=== PATIENT | female | born 1955 | race Caucasian/White ===

== ENCOUNTER 2016-12-09 06:04 | Outpatient (CLI) | payer MEDICARE, MEDICAID ==
[~2016-12-09] VITALS: Ht 165.1 cm; Wt 105.3 kg
--- NOTE | ~2016-12-09 | CATH ---
Cardiac Diagnostic Report Demographics Patient Name LINDA Santos Gender Female Date of 1955 Age 60 year(s) Patient Number [id number] Date of Study 12/09/2016 Visit Number [id number] Room Number G6399 [place] [id number] Ht 165 cm Wt 105.3 kg Referring Dada Dey Primary Physician Physician Roberto ATKINSON Performing Abdi Campa MD Secondary Physician Physician Diagnostic Abdi Campa MD Assisting Physician Physician Interventional Physician Manufactured Buildings Supervisor Physician Findings and Conclusions Diagnostic Findings and Conclusion 2 vessel CAD Diagnostic Recommendations Continued medical therapy Procedure Description The patient was brought to the diagnostic cardiac catheterization-EP laboratory in the fasting, non-sedated state. Informed consent was obtained in the written and verbal form after the risks and benefits were explained. The patient had no further questions and agreed to proceed. The planned puncture-incision site(s) were shaved and prepped with ChloraPrep and draped in the usual sterile manner. Conscious sedation, supplemental oxygen, and pain control medications were delivered by a registered nurse under physician guidance. Surface ECG rhythm, blood pressure measurement, and pulse oximetry were monitored throughout the procedure. Arterial access. The access site was infiltrated with lidocaine. The vessel was entered with the Seldinger technique. A sheath was advanced into the vessel and used for catheter placement. Selective left coronary angiography. A catheter was advanced into the left coronary vessel ostium under Fluoroscopic guidance. Contrast was injected by hand. Images were obtained in multiple projections. Selective right coronary angiography. A catheter was advanced into the right coronary vessel ostium under fluoroscopic guidance. Contrast was injected by hand. Images were obtained in multiple projections. Left heart catheterization. A catheter was advanced across the aortic valve to the left ventricle under fluoroscopic guidance. Resting hemodynamics were obtained. Arterial artery hemostasis was achieved. The patient was transferred to a regular nursing floor via cart accompanied by a nurse. The patient left the laboratory in stable condition. Diagnostic Cath Status: Elective Procedure Procedure Type Diagnostic procedure:Angiography:, Coronary Angios w/[facility] Indications: Dyspnea with exertion. The procedure was explained in detail to the patient. Risks, complications and alternative treatments were reviewed. Written consent was obtained. Medications Reviewed with Patient prior to Procedure. Angiographic Findings Dominance: Right Cardiac Arteries and Lesion Findings LMCA: Normal (0% Stenosis).medium wnl LAD: Normal (0% Stenosis).large prox, mediun wnl diags, medium wnl LCx: Normal (0% Stenosis).medium patent stent wnl OM medium wnlThere is a previous stent on Prox CX Proximal subsection showing wide patency. RCA: Normal (0% Stenosis).large patent stents PDA medium PL medium wnlThere is a previous stent on Prox RCA showing wide patency. There is a previous stent on Prox RCA Proximal subsection. There is a previous stent on Mid RCA. Coronary Tree Procedure Data Procedure Date Date: 12/09/2016Start: 08:07 AMEnd: 09:09 AM Entry Locations - Retrograde Percutaneous access was performed through the Left Femoral artery (Primary location). A 6 Fr sheath was inserted. Hemostasis was successfully obtained using Angio-Seal STS PLUS ([facility]). Entry Comments: rt side could not cannulate properly. Closure Comments: deployed by martine. Procedure Medications Order and Administration + + +---------+ + !Time !Medication !Dosage !Route ! + + +---------+ + !12/09/2016 08:02 !Versed !1 mg !I.V. ! !AM ! ! ! ! + + +---------+ + !12/09/2016 08:03 !Fentanyl !50 mcg !I.V. ! !AM ! ! ! ! + + +---------+ + !12/09/2016 08:05 !Versed !1 mg !I.V. ! !AM ! ! ! ! + + +---------+ + !12/09/2016 08:07 !Versed !1 mg !I.V. ! !AM ! ! ! ! + + +---------+ + !12/09/2016 08:10 !Fentanyl !50 mcg !I.V. ! !AM ! ! ! ! + + +---------+ + !12/09/2016 08:13 !Oxygen !2 l/min !NC ! !AM ! ! ! ! + + +---------+ + !12/09/2016 08:17 !Versed !1 mg !I.V. ! !AM ! ! ! ! + + +---------+ + !12/09/2016 08:20 !Oxygen !5 l/min !NC ! !AM ! ! ! ! + + +---------+ + !12/09/2016 08:31 !Versed !0.5 mg !I.V. ! !AM ! ! ! ! + + +---------+ + !12/09/2016 08:34 !D5W 1000ml w/ 150 mEq Sodium !106 ml/hr!I.V. drip ! !AM !Bicarb ! ! ! + + +---------+ + Devices Used - A6 Fr. BS JL 4 Diag. Catheterwas used for:Left coronary angiography. - A6 Fr. BS JR 4 Diag. Catheterwas used for:Right coronary angiography. - A6 Fr. BS Angled Pigtail Diag. Catheterwas used for:LV Pressures. Contrast Material - Isovue 82078 ml Fluoroscopy Time: Diagnostic: 6:24 minutes. Total: 6:24 minutes. Fluoroscopy Dose: Diagnostic: 739 mGy. Total: 739 mGy. Estimated Blood Loss: 10 ml. Medical History Allergies - Other:(Morphine, Demerol, Sulfa, Cozaar, Codeine, Statins, Plastic tape, Levothyroxine, oral prednisone.). - Other:(Sulfa, morphine, codeine, sulfamethoxazole, adenosine, meperidine, valsartan, erythromycin, diphenhydramine, atorvastatin). - Sulfa. - Morphine. - Codiene. - Other:(sulfa, morphine, codiene, erythromycin, adenosine, meperidine, valsartan, heparin, ethyl alchololo, atrovastatin). Risk Factors The patient risk factors include:prior PCI on 10/11/2013;peripheral arterial disease, obesity, physical activity, hypercholesterolemia, treated hypertension, family history of premature CAD, chronic lung disease, last creatinine: 1.1 mg/dl, creatinine clearance: 88.15 ml/min, dyslipidemia, former tobacco use and prior [place] . Admission Data Admission Date: 12/09/2016 Admission Time: 06:04 AM Admit Source: Other Insurance Payors: Medicare. Admission Medications + +------+------+ + + + + !Medication !Dosage!Times !Last !Last !Administered !Comments ! ! ! !Per !Delivery !Delivery ! ! ! ! ! !Day !Date !Time ! ! ! + +------+------+ + + + + !Aspirin ! ! ! ! ! ! ! !(any) ! ! ! ! ! ! ! + +------+------+ + + + + !JAGUAR ! ! ! ! ! ! ! !Inhibitor ! ! ! ! ! ! ! !(any) ! ! ! ! ! ! ! + +------+------+ + + + + !Beta Monty! ! ! ! ! ! ! !(any) ! ! ! ! ! ! ! + +------+------+ + + + + Clinical Evaluation Leading to Procedure - The patient's CAD presentation was assessed as: Unstable angina. - The patient's anginal syndrome during the past two weeks was assessed as: Class IV according to the [place] Cardiovascular Society Classification System (CCS). Anti-anginal medications were prescribed during the past two weeks. The medications are: Beta Blockers and Other. VA LV function assessed as:Abnormal. Ejection Fraction - 12/06/2016 - Method: Radionucleotide. EF%: 55. LVA Segment Contractility 1 - Normal 3 - Mild 5 - Severe 7 - Dyskinesis hypokinesis hypokinesis 2 - 4 - Moderate 6 - Akinesis 8 - Aneurysm Hypokinesis hypokinesis Hemodynamics Condition: Rest O2 Consumption: Estimated: 211.69Heart Rate: 86 bpm Pressures (mmHg) +-----+ + !Site !Pressure ! +-----+ + !AO !144/76 (104) ! +-----+ + !LV !144/11 ,17 ! +-----+ + !LV !158/11 ,19 ! +-----+ + !AO !151/76 (107) ! +-----+ + !LV !136/1 ,6 ! +-----+ + Valve Gradients and Areas + +---------+---------+---------+ +---------+ + !Valve !Peak !Mean !Area !Index !Flow !Source ! + +---------+---------+---------+ +---------+ + !Aortic !0 !0 ! ! ! ! ! + +---------+---------+---------+ +---------+ + !Aortic !0 !0 ! ! ! ! ! + +---------+---------+---------+ +---------+ + Shunts Oxygen Values O2 Capacity 183.6 O2 Consumption 211.69 Discharge Data Discharge Date: 12/09/2016 Hospital Status: Outpatient Signatures dtt: Lokesh Patton (cardio) dtd: 12/09/16 0807 Physician Self Edit
[~2016-12-09 06:04] MED LIST: ADVAIR HFA 230/1 KIT INH; ARMOUR THYROID60 MG PO; ASPIRIN LO-DOSE81 MG PO; BENAZEPRIL HCL5 MG PO; PEPCID40 MG PO; PINDOLOL5 MG PO; PROTONIX40 MG PO
[2016-12-09] MEDS ORDERED: LASIX20 MG PO (10:08)
== END 2016-12-09 14:20 | disposition disaster alternative care site (69) ==
LOC: GCAT 06:04 → GPCU 06:04 → GCAT 14:20
PROC: B2111ZZ Fluoroscopy of Multiple Coronary Arteries using Low Osmolar Contrast (ICD-10-PCS; principal; 2016-12-09)
PROC: 4A023N7 Measurement of Cardiac Sampling and Pressure, Left Heart, Percutaneous Approach (ICD-10-PCS; principal; 2016-12-09)
DX: I25.118 Atherosclerotic heart disease of native coronary artery with other forms of angina pectoris (principal); I10 Essential (primary) hypertension; E03.9 Hypothyroidism, unspecified; I48.0 Paroxysmal atrial fibrillation; I27.2 Other secondary pulmonary hypertension; E78.00 Pure hypercholesterolemia, unspecified; I73.9 Peripheral vascular disease, unspecified; E66.9 Obesity, unspecified; J98.4 Other disorders of lung; I51.89 Other ill-defined heart diseases; I25.2 Old myocardial infarction; J30.2 Other seasonal allergic rhinitis; R06.01 Orthopnea; Z95.5 Presence of coronary angioplasty implant and graft; Z87.891 Personal history of nicotine dependence; Z79.82 Long term (current) use of aspirin; Z79.51 Long term (current) use of inhaled steroids; Z79.899 Other long term (current) drug therapy; Z82.49 Family history of ischemic heart disease and other diseases of the circulatory system
CPT/HCPCS: C1760; C1769; J1644; J2250; J2405; J3010; J7030; J7060

== ENCOUNTER → 2017-01-06 | Outpatient (CLI) | payer MEDICARE, MEDICAID ==
[~2017-01-06] MED LIST changes: +LASIX20 MG PO
--- NOTE | ~2017-01-06 | ENPV ---
Vascular Lower Arterial Plethysmography Procedure Demographics Patient Name RHONDA MCKEON Date of Study 01/06/2017 Patient Number [id number] Gender Female Date of 1955 Age 61 Visit Number [id number] Height Accession Number [id number] Weight Room Number BSA BMI Referring Abdi Campa MD Interpreting Juan Daniel Gaytan MD Physician Physician Physician Ordering Physician Abdi Campa MD Banking Manager Claims Adjustor Greg Mejia BS, RT Conclusions Summary Biphasic and Triphasic waveforms bilaterally. Ankle brachial index on the right is .88 mild arterial disease at rest. Ankle brachial index on the left is .98 no significant arterial disease at rest. Incompressible common femoral and superficial femoral on the right. Incompressible superficial femoral on the left. The left brachial pressure was 182 post exercise. Procedure Type of Study: Extremities Arteries:Lower Arterial Plethysmography, Segmental Pressure w/Excercies. Indications for Study:Claudication. Allergies - Other:(Morphine, Demerol, Sulfa, Cozaar, Codeine, Statins, Plastic tape, Levothyroxine, oral prednisone.). - Other:(Sulfa, morphine, codeine, sulfamethoxazole, adenosine, meperidine, valsartan, erythromycin, diphenhydramine, atorvastatin). - Sulfa. - Morphine. - Codiene. - Other:(sulfa, morphine, codiene, erythromycin, adenosine, meperidine, valsartan, heparin, ethyl alchololo, atrovastatin). Patient Status:Routine. Study Location:Vascular Lab. Technical Quality:Adequate visualization. Velocities are measured in cm/s ; Diameters are measured in cm Pressures + ++--------+-----+----+--------+-----+ ! !!Right ! !Left! ! ! + ++--------+-----+----+--------+-----+ !Location !!Pressure!Ratio! !Pressure!Ratio! + ++--------+-----+----+--------+-----+ !Upper Thigh !! ! ! !210 !1.05 ! + ++--------+-----+----+--------+-----+ !Ankle PT !!176 !0.88 ! !195 !0.98 ! + ++--------+-----+----+--------+-----+ !DP !!175 !0.88 ! !184 !0.92 ! + ++--------+-----+----+--------+-----+ !Great Toe !!107 !0.54 ! !112 !0.56 ! + ++--------+-----+----+--------+-----+ - Brachial Pressure:Right: 193.Left:200. - RITU:Right: 0.88.Left: 0.98. Plethysmographic Digit Evaluation +---------++--------+-----+ ++--------+-----+ + ! !!Right ! !Left !! ! ! ! +---------++--------+-----+ ++--------+-----+ + !Location !!Pressure!Ratio!PPG Wave Form !!Pressure!Ratio!PPG Wave Form ! +---------++--------+-----+ ++--------+-----+ + !Great Toe!!107 !0.54 ! !!112 !0.56 ! ! +---------++--------+-----+ ++--------+-----+ + Signature dtt: JANNET ALICIA dtd: 01/06/17920 Physician Self Edit
== END | disposition disaster alternative care site (69) ==
LOC: GCAR 08:45
DX: I73.9 Peripheral vascular disease, unspecified (principal); M79.604 Pain in right leg